=== PATIENT | female | born 1960 | race Caucasian/White ===

== ENCOUNTER 2018-09-15 15:57 | Emergency (ER) | payer OTHER, BC ==
--- NOTE | 2018-09-15 16:12 | EDM.PDOC ---
ED HPI GENERAL MEDICAL PROBLEM - General Chief Complaint: Upper Extremity Injury/Pain Stated Complaint: FALL AND INJURED L WRIST Time Seen by Provider: 09/15/18 16:02 Source of Information: Reports: Patient, RN, RN Notes Reviewed History Limitations: Reports: No Limitations - History of Present Illness INITIAL COMMENTS - FREE TEXT/NARRATIVE: Patient presents the emergency room at [facility] for the evaluation of left wrist pain/injury and also right foot pain. The patient states that while she was hanging pictures, she stepped backward stepping into her toolbox causing her to fall to the left side. The patient complains of left wrist pain as her primary injury. The patient is having some right foot pain but does not believe she has any real injury. The patient denies any numbness tingling or paresthesia to any extremity. The patient states she has adequate range of motion of both extremities however the left wrist is painful to move. The patient does have some swelling of the left wrist. The patient has some tenderness to the dorsum of the right foot. The patient states that her right foot hurts more when she is off her feet. The patient feels that walking helps to stretch the right foot and does not have much pain. The patient denies any surgeries to any extremity. The patient denies any previous injury or trauma to either extremity. The patient states that this is a work-related injury. Onset: Today Onset Date: 09/15/18 Onset Time: 15:25 Review of Systems - Review of Systems Review Of Systems: See Below Constitutional: Denies: Chills, Fever Respiratory: Denies: Shortness of Breath, Cough Cardiovascular: Denies: Chest Pain, Palpitations Musculoskeletal: Reports: Foot Pain, Joint Pain, Joint Swelling, Muscle Pain, Muscle Stiffness Skin: Reports: No Symptoms Neurological: Reports: No Symptoms ED EXAM, GENERAL - Physical Exam Exam: See Below Exam Limited By: No Limitations General Appearance: Alert, No Apparent Distress Head: Atraumatic, Normocephalic Respiratory/Chest: No Respiratory Distress, Lungs Clear, Normal Breath Sounds Cardiovascular: Normal Peripheral Pulses, Regular Rate, Rhythm Peripheral Pulses: 2+: Radial (L), Radial (R) Extremities: Normal Range of Motion, Normal Capillary Refill, Joint Swelling. No: Increased Warmth, Redness Neurological: Alert, Oriented Skin Exam: Warm, Dry, Intact, Normal Color Course - Orders/Labs/Meds Orders: Active Orders 24 hr Category Date Time Status Foot Comp Min 3V Rt [CR] Stat Exams 09/15/18 16:07 Taken Wrist Comp Min 3V Lt [CR] Stat Exams 09/15/18 16:11 Taken - Radiology Interpretation Free Text/Narrative:: Wrist, Left: No acute fracture or dislocation seen on plain film Foot, Right: No acute fracture or dislocation seen on plain film See scanned reports in EMR for details Departure - Departure Time of Disposition: 16:40 Disposition: Home, Self-Care 01 Condition: Good Clinical Impression: Encounter related to worker's compensation claim Left wrist sprain Qualifiers: Encounter type: initial encounter Qualified Code(s): S63.502A - Unspecified sprain of left wrist, initial encounter Right foot injury Qualifiers: Encounter type: initial encounter Qualified Code(s): S99.921A - Unspecified injury of right foot, initial encounter Fall Qualifiers: Encounter type: initial encounter Qualified Code(s): W19.XXXA - Unspecified fall, initial encounter - Discharge Information *PRESCRIPTION DRUG MONITORING PROGRAM REVIEWED*: Not Applicable *COPY OF PRESCRIPTION DRUG MONITORING REPORT IN PATIENT JESUS: Not Applicable Instructions: Wrist Sprain, Adult Referrals: Laureen Boone MD [Primary Care Provider] - Forms: ED Department Discharge Additional Instructions: 1. Stay well hydrated and rest 2. May alternate Tylenol/Advil as needed 3. Elevate and ice several times a day 4. Wear wrist splint at all times to help with healing 5. See your PCP as symptoms warrant - Problem List Review Problem List Initiated/Reviewed/Updated: Yes - My Orders Last 24 Hours: My Active Orders 09/15/18 16:07 Foot Comp Min 3V Rt [CR] Stat 09/15/18 16:11 Wrist Comp Min 3V Lt [CR] Stat - Assessment/Plan Last 24 Hours: My Active Orders 09/15/18 16:07 Foot Comp Min 3V Rt [CR] Stat 09/15/18 16:11 Wrist Comp Min 3V Lt [CR] Stat Assessment:: Left wrist sprain Fall Encounter for Workers Comp claim Plan: Xrays discussed with patient. No acute fractures or dislocations seen on either film. Recommend left wrist splint at all times for the next couple weeks. Tylenol/Advil as needed. RICE. See PCP as symptoms warrant.
--- NOTE | 2018-09-15 17:22 | CR ---
[id number] RAD/RAD Wrist Left 3V Min EXAM: LEFT WRIST 3 VIEWS INDICATION: Fall with wrist pain. COMPARISON: None. DISCUSSION: Mild osteopenia. Mild to moderate triscaphe and first carpometacarpal osteoarthritis. Dorsal soft tissue swelling. No acute fracture or dislocation is identified. IMPRESSION: 1. Soft tissue swelling. No acute fracture is identified. Alfred Burgess MD 09/15/18 [id number] Thank you for allowing us to participate in the care of your patient.
--- NOTE | 2018-09-15 17:24 | CR ---
[id number] RAD/RAD Foot Right 3V Min EXAM: RIGHT FOOT 3 VIEWS INDICATION: Fall with right foot pain. COMPARISON: None. DISCUSSION: Moderate plantar calcaneal spur. Mild midfoot and interphalangeal osteoarthritis. No acute fracture or dislocation is identified. IMPRESSION: 1. No acute findings. Alfred Burgess MD 09/15/18 [id number] Thank you for allowing us to participate in the care of your patient.
== END 2018-09-15 16:45 | disposition home or self-care (01) ==
LOC: VM.ED 15:57
DX: S63.502A Unspecified sprain of left wrist, initial encounter (principal); S99.921A Unspecified injury of right foot, initial encounter; Y99.0 Civilian activity done for income or pay; W18.09XA Striking against other object with subsequent fall, initial encounter
CPT/HCPCS: 73110-LT; 73630-RT; 99283-25